=== PATIENT | female | born 1980 | race Caucasian/White ===

== ENCOUNTER 2017-09-28 15:22 | Emergency (ER) | payer SELFPAY ==
--- NOTE | 2017-09-28 16:15 | ED Physician Documentation ---
Chest Pain - HISTORIAN Historian: patient - HPI Chief Complaint: Chest Pain (chest wall pain) Additional Information: mylnee developed some left subscupular pain. Has been using shoulders to lift at work, about 40 lbs. Since that time has radiated into the left anterior chest area. Worse with deep breathing, cough. Has been having some SOB felt to be related to anxiety problems. Onset: days ago ( 1 day) Timing: gradual onset Duration: constant Last known Well Date: 09/27/17 Last Known Well Time: 23:00 Last known Well Code/Unknown Code: Known Context: activity (working) Quality: aching, sharp Chest Pain Radiation: other (started subscapular, now left upper anterior chest area) Chest Pain Signs/Symptoms: denies: nausea, vomiting, diaphoresis Worsened By: deep breaths, movement Relieved By: sitting up - ROS CONST: no problems MS/LYMPH: denies: calf pain, ankle swelling GI/: denies: abdominal pain, vomiting, nausea, diarrhea NEURO/PSYCH: denies: headache, fainting - PAST HX IN risk factors: no pertinent history, other (panic attacks) DVT/PE Risk Factors: none GI disease: none Lung disease: none. denies: asthma, COPD, pneumothorax Surgeries/Procedures: cholecysectomy, other (ORIF right ankle fracture, c section) Immunizations: denies: influenza Allergies/Adverse Reactions: Allergies Allergy/AdvReac Type Severity Reaction Status Date / Time No Known Allergies Allergy Verified 09/28/17 16:17 Home Medications: Ambulatory Orders Medication Instructions Recorded Ibuprofen [Advil] 400 - 800 mg PO Q8 PRN #50 tablet 09/28/17 - SOCIAL HX Smoking History: greater than 1 pack/day Alcohol Use: none Drug Use: none - FAMILY HX Family HX: none - VITAL SIGNS Vital Signs: Vital Signs Temp Pulse Resp BP Pulse Ox 166/81 07/28/15 20:11 - REVIEWED ASSESSMENTS Nursing Assessment Reviewed: Yes Vitals Reviewed: Yes Progress - EKG/XRAY/CT EKG: NSR, no ST T wave changes ED Results Lab/Radiology - Radiology Radiology Impressions: Examination: PA and lateral chest. History: Evaluate lung abreu. Findings: PA lateral chest demonstrate a normal cardiac and mediastinal silhouette. No focal infiltrate. No blunting of the costophrenic margins. Osseous structures are appropriate for age. Impression: No acute pulmonary process. Chest Pain Physical Exam - EXAM General Appearance: alert, mild distress, anxious EENT: ENT inspection normal, pharynx normal, no signs of dehydration Neck: nml inspection, no carotid bruit. No: lymphadenopathy, subcutaneous emphysema Respiratory: no resp. distress, chest non-tender, nml breath sounds CVS: reg. rate & rhythm, no murmur, no gallop Abdomen: soft, no organomegaly, normal bowel sounds, no abdominal bruit, no distension, non-tender Skin: warm/dry, normal color Extremities: non-tender. No: edema, tenderness Neuro: oriented X3, mood/affect nml, cognition normal Discharge Clincal Impression: Pleurisy Prescriptions: Ibuprofen [Advil] 400 - 800 mg PO Q8 PRN #50 tablet PRN Reason: Pain Referrals: Addy Parrish MD [Primary Care Provider] - 2 Days Additional Instructions: Try using a warm compress to the shoulder chest area. Take Ibuprofen 400-800mg every 8 hours with food as needed for pain. If symptoms are not improving in the next several days to follow-up with your primary care provider or return to the ED. Condition: Stable Disposition: 01 HOME, SELF-CARE Decision to Admit: NO Date of Decison to Admit: 09/28/17 Decision Time: 18:43
--- NOTE | 2017-09-28 16:51 | Diagnostic Imaging Report ---
[facility] [id number] [facility].[address] [id number] Report Submission Date: Sep 28, 2017 4:43:29 PM EMERY GRINDER Patient Study Name: LUIS CARLOS MICHELLE Date: Sep 28, 2017 4:29:35 PM EMERY GRINDER Modality Type: CR Gender: F Description: CHEST : 82 Institution: [facility] Physician: LEIGHTON ZIMMER Examination: PA and lateral chest. History: Evaluate lung abreu. Findings: PA lateral chest demonstrate a normal cardiac and mediastinal silhouette. No focal infiltrate. No blunting of the costophrenic margins. Osseous structures are appropriate for age. Impression: No acute pulmonary process. Electronically signed on Sep 28, 2017 4:43:29 PM EMERY GRINDER by: Robbin COX
[2017-09-28] MEDS ORDERED: KETOROLAC TROMETHAMINE 30 MG/1ML VIAL ONE (17:16)
[2017-09-28] MEDS ORDERED: KETOROLAC TROMETHAMINE 30 MG/1ML VIAL IVP ONE (17:17)
[2017-09-28 18:03] LABS: BASOPHILS % 0.5 (0.0-1.5); EOSINOPHILS % 0.8 % (0.0-6.8); MEAN CORPUSCULAR HEMOGLOBIN 29.9 pg (28.0-34.0); MONOCYTES % 2.9 % (0.0-11.0); NEUTROPHILS # 10.6 # k/uL (1.4-7.7)
[2017-09-28 18:16] LABS: eGFR (African) > 60; eGFR (Non-African) > 60
[2017-09-28] MEDS ORDERED: IBUPROFEN 400 MG TABLET PO ONE (18:39)
[2017-09-28 18:53] VITALS: BP 125/87
== END 2017-09-28 18:50 | disposition home or self-care (01) ==
LOC: ED 15:22
DX: R09.1 Pleurisy (principal)
CPT/HCPCS: 36415; 71020; 80053; 85025; 85379; 99283; S1016